=== PATIENT | male | born 1945 | race African-American/Black ===

== ENCOUNTER → 2022-07-12 | Day surgery (SDC) | payer MEDICARE ==
[~2022-07-12] VITALS: Ht 177.8 cm; Wt 127.0 kg
[2022-07-12] VITALS (11 sets, daily range): BP systolic 119–160; BP diastolic 74–89
[~2022-07-12] MED LIST: FENTANYL CITRATE/PF 50MCG/ML 2ML VIAL IV ONE; FENTANYL CITRATE/PF 50MCG/ML 2ML VIAL ONE; LIDOCAINE HCL 1% 10 MG/ML 10ML VIAL ONE; SODIUM BICARBONATE 4% (2.4MEQ) 5ML VIAL IV ONE
== END | disposition home or self-care (01) ==
LOC: RAD 09:37
PROVIDERS: ATTEND Radiology Radiation Oncology
DX: M24.852 Other specific joint derangements of left hip, not elsewhere classified (principal); C61 Malignant neoplasm of prostate; I10 Essential (primary) hypertension; E78.5 Hyperlipidemia, unspecified; Z79.899 Other long term (current) drug therapy; Z98.890 Other specified postprocedural states
CPT/HCPCS: 20206; 77012; 88304; 88311; J3010; J3490; Z7610; 99152; 99153; G0500

== ENCOUNTER 2024-06-02 09:31 | Emergency (ER) | payer MEDICARE ==
[~2024-06-02] VITALS: Ht 177.8 cm; Wt 125.0 kg
[2024-06-02 09:40] VITALS: O2SAT 96
[2024-06-02 09:43] VITALS: BP 166/80; PULSE 70; RESP 16; TEMP 36.9; O2SAT 98
[2024-06-02] MEDS: SODIUM CHLORIDE 0.9% (SEPSIS BOLUS) IV ONE (10:56)
[2024-06-02 11:00] LABS: EOSINOPHILS % 1.2 % (0.0-5.0); HEMATOCRIT. 39.9 % (42.0-52.0); HEMOGLOBIN. 13.1 g/dL (14.0-18.0); MEAN CORPUSCULAR HEMOGLOBIN 29.2 pg (28.0-32.0); MEAN CORPUSCULAR HGB CONC 32.9 g/dL (31.0-37.0); MEAN CORPUSCULAR VOLUME 88.9 fL (80.0-94.0); MEAN PLATELET VOLUME 8.5 fl (7.4-10.4); MONOCYTES % 9.1 % (2.0-8.0); NEUTROPHILS % 70.7 % (40.0-76.0); PLATELET 257 x1000/uL (130-400); RED BLOOD CELL COUNT 4.49 mill/uL (4.7-6.1); RED CELL DISTRIBUTION WIDTH 14.1 % (11.6-14.6); WHITE BLOOD COUNT 7.5 x1000/uL (4.5-11.0)
[2024-06-02 11:06] LABS: CHLORIDE 105 mEq/L (98-107); SODIUM 141 mEq/L (136-145)
[2024-06-02 11:07] LABS: CARBON DIOXIDE 26 mEq/L (21-32)
[2024-06-02 11:12] LABS: CREATININE 1.3 mg/dL (0.6-1.3); GLUCOSE 143 mg/dL (70-105); UREA NITROGEN BLOOD 17 mg/dL (9-23)
[2024-06-02] MEDS ORDERED: LIDOCAINE HCL/PF 1% 10 MG/ML 5ML VIAL INFIL ONE (14:00)
[2024-06-02] MEDS ORDERED: BACITRACIN ZINC OINT UDPKT TOP ONE (14:00)
[2024-06-02] MEDS: VANCOMYCIN 1GM/200ML PMX (BAXTER) IV SCH (14:15)
[2024-06-02] MEDS ORDERED: SULF1TAB48 MT (15:45)
[2024-06-02] MEDS ORDERED: CEPH500T MT (15:45)
[2024-06-02] MEDS ORDERED: AMOX1TAB16 MT (16:02)
== END 2024-06-02 16:56 | disposition home or self-care (01) ==
LOC: ER 09:31
DX: N49.2 Inflammatory disorders of scrotum (principal); E11.9 Type 2 diabetes mellitus without complications; Z79.899 Other long term (current) drug therapy
CPT/HCPCS: 55100; 80048; 83605; 85025; 85610; 87040; 87186; 87205; 87077; 36415; 84145; 71045; 74177; 99285; 96365; 96361; 93005; 87070; J2003; J3370; J7030; 54700